=== PATIENT | female | born 2000 | race African-American/Black ===

== ENCOUNTER → 2024-07-25 11:37 | Outpatient (REF) | payer OTHER, SELFPAY ==
[2024-07-25 20:26] LABS: Rubella Positive
[2024-07-25 22:18] LABS: Hepatitis B Surface Antibody Negative
[2024-07-27 13:01] LABS: Quantiferon Mitogen minus NIL 9.93 IU/mL; Quantiferon NIL 0.07 IU/mL; Quantiferon Plus TB1 minus NIL 0.09 IU/mL (<=0.34); Quantiferon Plus TB2 minus NIL 0.11 IU/mL (<=0.34); Quantiferon TB Gold Plus Negative (Negative)
== END ==
LOC: OHS 11:37
PROVIDERS: ATTENDING PHYSICIAN Nurse Practitioner Family
DX: Z23 Encounter for immunization (principal)
CPT/HCPCS: 36415; 86480; 86706; 86735; 86762; 86765; 86787